=== PATIENT | female | born 1955 | race Caucasian/White ===

== ENCOUNTER 2021-03-13 04:57 | Day surgery (SDC) | payer OTHER ==
[2021-03-11 13:07] VITALS: BMI 30.1
[2021-03-13 11:53] VITALS: BP 143/71; PULSE 52; TEMP 97.9
== END 2021-03-13 11:53 | disposition home or self-care (01) ==
LOC: JASU-ENDO 04:57
PROVIDERS: ATTEND Internal Medicine Gastroenterology
PROC: 0DB68ZX Excision of Stomach, Via Natural or Artificial Opening Endoscopic, Diagnostic (ICD-10-PCS; 2021-03-13)
PROC: 0DB98ZX Excision of Duodenum, Via Natural or Artificial Opening Endoscopic, Diagnostic (ICD-10-PCS; principal; 2021-03-13 11:30)
DX: K29.00 Acute gastritis without bleeding (principal); I10 Essential (primary) hypertension; E11.9 Type 2 diabetes mellitus without complications; Z79.84 Long term (current) use of oral hypoglycemic drugs
CPT/HCPCS: 82962; 88305-TC; 88342-TC

== ENCOUNTER 2022-11-05 00:35 | Observation (INO) | payer OTHER ==
[2022-11-05] MEDS ORDERED: MECLIZINE HCL 25 MG TABLET (FP) PO ONE (02:43)
[2022-11-05] MEDS ORDERED: MECLIZINE HCL 25 MG TABLET (FP) ONE (02:54)
[2022-11-05 03:08] LABS: BASO % 0.7 % (0-2.0); EOS % 1.5 % (0-4.5); HEMATOCRIT 38.6 % (32.4-45.2); HEMOGLOBIN 12.6 GM/dL (10.7-15.3); LYMPH % 35.8 % (8-40); MCH 28.5 pg (25.7-33.7); MCHC 32.6 g/dl (32.0-36.0); MEAN CELL VOLUME 87.4 fl (80-96); MEAN PLT VOLUME 8.8 fl (7.5-11.1); MONO % 6.1 % (3.8-10.2); NEUT % 55.9 % (42.8-82.8); PLATELET COUNT 205 10^3/uL (134-434); RBC 4.41 M/mm3 (3.60-5.2); RDW 13.2 % (11.6-15.6); WHITE BLOOD COUNT 8.7 K/mm3 (4.0-10.0)
[2022-11-05 03:27] LABS: INR 0.96 (0.83-1.09); PROTHROMBIN TIME (PATIENT) 11.1 SEC (9.7-13.0)
[2022-11-05 03:29] LABS: ACTIVATED PTT 31.6 SECONDS (25.2-36.5)
[2022-11-05 03:35] LABS: CALCIUM 9.8 mg/dL (8.5-10.1)
[2022-11-05 03:36] LABS: ALBUMIN 3.8 g/dl (3.4-5.0); BLOOD UREA NITROGEN 20.2 mg/dL (7-18)
[2022-11-05 03:39] LABS: CREATININE 0.9 mg/dL (0.55-1.3)
[2022-11-05 03:40] LABS: BILIRUBIN,TOTAL 0.7 mg/dL (0.2-1); TOT PROT 7.1 g/dl (6.4-8.2)
[2022-11-05] MEDS ORDERED: AZITHROMYCIN IVPB 500 MG/250 ML BAG IVPB SCH (10:00)
[2022-11-05] MEDS ORDERED: ASPIRIN 81 MG CHEWABLE TABLETS ONE (11:25)
[2022-11-05] MEDS: ASPIRIN 325 MG TABLET PO SCH (11:33)
[2022-11-05] MEDS ORDERED: AZITHROMYCIN IVPB 500 MG/250 ML BAG IVPB ONE (13:08)
[2022-11-05] MEDS: AZITHROMYCIN IVPB 500 MG/250 ML BAG IVPB SCH (14:28)
[2022-11-05] MEDS ORDERED: CEFTRIAXONE 1 GM/50 ML BAG ONE (17:02)
[2022-11-05] MEDS: CEFTRIAXONE 1 GM in DEXTROSE 5%-WATER - 50 ML IVPB SCH (17:08)
[2022-11-05] MEDS: INSULIN (NOVOLOG) ASPART 100 UNITS/ML 10ML VIAL SQ SCH (18:47)
[2022-11-05] MEDS ORDERED: ATORVASTATIN CA 80 MG TABLET (FP) PO ONE (22:00)
[2022-11-06 00:28] VITALS: BMI 32.7
[2022-11-06] MEDS ORDERED: ATORVASTATIN CA 80 MG TABLET (FP) PO ONE (00:45)
[2022-11-06] MEDS: INSULIN (NOVOLOG) ASPART 100 UNITS/ML 10ML VIAL SQ SCH ×5 (06:22→22:45)
[2022-11-06 08:24] LABS: POTASSIUM 4.3 mmol/L (3.5-5.1)
[2022-11-06 08:30] LABS: CALCIUM 9.3 mg/dL (8.5-10.1)
[2022-11-06 08:31] LABS: ALBUMIN 3.6 g/dl (3.4-5.0); BLOOD UREA NITROGEN 22.4 mg/dL (7-18); MAGNESIUM 2.2 mg/dL (1.8-2.4)
[2022-11-06 08:33] LABS: CREATININE 0.9 mg/dL (0.55-1.3); PHOSPHOROUS 4.5 mg/dL (2.5-4.9)
[2022-11-06 08:35] LABS: BILIRUBIN,TOTAL 0.9 mg/dL (0.2-1); TOT PROT 6.8 g/dl (6.4-8.2)
[2022-11-06 08:38] LABS: CHOLESTEROL 142 mg/dL (50-200)
[2022-11-06 08:40] LABS: LDL CHOLESTEROL (ONLY SJRH) 86 mg/dL (5-100)
[2022-11-06 08:41] LABS: HDL CHOLESTEROL 37 mg/dL (40-60)
[2022-11-06 08:52] LABS: BASO % 0.2 % (0-2.0); EOS % 1.9 % (0-4.5); HEMATOCRIT 40.1 % (32.4-45.2); HEMOGLOBIN 13.1 GM/dL (10.7-15.3); LYMPH % 38.7 % (8-40); MCH 28.2 pg (25.7-33.7); MCHC 32.6 g/dl (32.0-36.0); MEAN CELL VOLUME 86.7 fl (80-96); MEAN PLT VOLUME 9.6 fl (7.5-11.1); NEUT % 52.2 % (42.8-82.8); PLATELET COUNT 212 10^3/uL (134-434); RBC 4.63 M/mm3 (3.60-5.2); RDW 12.7 % (11.6-15.6); WHITE BLOOD COUNT 7.1 K/mm3 (4.0-10.0)
[2022-11-06] MEDS: NEBIVOLOL 10 MG TABLET (FP) PO SCH (09:46)
[2022-11-06] MEDS: ENOXAPARIN NA (PORCINE) 40 MG/0.4 ML DISP.SYRIN SQ SCH (09:46)
[2022-11-06] MEDS: ASPIRIN 325 MG TABLET PO SCH (09:46)
[2022-11-06] MEDS: AZITHROMYCIN IVPB 500 MG/250 ML BAG IVPB SCH ×2 (09:47→10:50)
[2022-11-06] MEDS: amLODIPine BESYLATE 5 MG TABLET (FP) PO SCH (09:47)
[2022-11-06] MEDS: CEFTRIAXONE 1 GM in DEXTROSE 5%-WATER - 50 ML IVPB SCH ×2 (09:47→10:49)
[2022-11-07] MEDS: INSULIN (NOVOLOG) ASPART 100 UNITS/ML 10ML VIAL SQ SCH ×4 (06:44→22:26)
[2022-11-07] MEDS ORDERED: oxyCODONE HCL 5 MG TABLET PO PRN (09:29)
[2022-11-07] MEDS: amLODIPine BESYLATE 5 MG TABLET (FP) PO SCH (10:16)
[2022-11-07] MEDS: ENOXAPARIN NA (PORCINE) 40 MG/0.4 ML DISP.SYRIN SQ SCH (10:16)
[2022-11-07] MEDS: ASPIRIN 325 MG TABLET PO SCH (10:16)
[2022-11-07] MEDS: NEBIVOLOL 10 MG TABLET (FP) PO SCH (10:16)
[2022-11-07] MEDS ORDERED: INSULIN (NOVOLOG) ASPART 100 UNITS/ML 10ML VIAL ONE (17:25)
[2022-11-07] MEDS ORDERED: ASPIRIN COATED 81 MG TABLET.EC PO SCH (19:11)
[2022-11-08] MEDS: INSULIN (NOVOLOG) ASPART 100 UNITS/ML 10ML VIAL SQ SCH ×2 (06:42→12:00)
[2022-11-08 06:44] VITALS: RESP 20; TEMP 98.3
[2022-11-08 07:49] LABS: BASO % 0.4 % (0-2.0); EOS % 1.7 % (0-4.5); HEMATOCRIT 40.4 % (32.4-45.2); HEMOGLOBIN 13.2 GM/dL (10.7-15.3); LYMPH % 42.9 % (8-40); MCH 28.1 pg (25.7-33.7); MCHC 32.6 g/dl (32.0-36.0); MEAN CELL VOLUME 86.2 fl (80-96); MEAN PLT VOLUME 9.7 fl (7.5-11.1); MONO % 7.4 % (3.8-10.2); NEUT % 47.6 % (42.8-82.8); PLATELET COUNT 204 10^3/uL (134-434); RBC 4.68 M/mm3 (3.60-5.2); WHITE BLOOD COUNT 6.7 K/mm3 (4.0-10.0)
[2022-11-08 07:57] LABS: POTASSIUM 4.3 mmol/L (3.5-5.1)
[2022-11-08 08:00] LABS: CALCIUM 9.3 mg/dL (8.5-10.1)
[2022-11-08 08:01] LABS: ALBUMIN 3.5 g/dl (3.4-5.0); BLOOD UREA NITROGEN 18.4 mg/dL (7-18); MAGNESIUM 2.3 mg/dL (1.8-2.4)
[2022-11-08 08:03] LABS: PHOSPHOROUS 3.9 mg/dL (2.5-4.9)
[2022-11-08 08:04] LABS: CREATININE 0.9 mg/dL (0.55-1.3)
[2022-11-08 08:05] LABS: TOT PROT 6.7 g/dl (6.4-8.2)
[2022-11-08] MEDS ORDERED: REGADENOSON 0.4 MG/5 ML PRE-FILLED SYRINGE IVPUSH ONE ×2 (14:18→14:30)
[2022-11-08] MEDS: amLODIPine BESYLATE 5 MG TABLET (FP) PO SCH (16:24)
[2022-11-08] MEDS: ENOXAPARIN NA (PORCINE) 40 MG/0.4 ML DISP.SYRIN SQ SCH (16:25)
[2022-11-08 16:46] VITALS: BP 126/77; PULSE 62
[2022-11-09] MEDS ORDERED: NEBIVOLOL 5 MG TABLET (FP) PO ONE (11:45)
== END 2022-11-08 18:38 | disposition home or self-care (01) ==
LOC: JER 00:35 → JERBED 05:45 → J4W 23:55
PROVIDERS: ADMIT Internal Medicine; ATTEND Internal Medicine
PROC: 3E023GC Introduction of Other Therapeutic Substance into Muscle, Percutaneous Approach (ICD-10-PCS; principal; 2022-11-05)
PROC: 3E033GC Introduction of Other Therapeutic Substance into Peripheral Vein, Percutaneous Approach (ICD-10-PCS; 2022-11-05)
DX: I44.7 Left bundle-branch block, unspecified (principal); E11.9 Type 2 diabetes mellitus without complications; R94.31 Abnormal electrocardiogram [ECG] [EKG]; R07.89 Other chest pain; I10 Essential (primary) hypertension; R42 Dizziness and giddiness
CPT/HCPCS: 36415; 71045-TC-FY; 78452-TC; 80053; 80061; 82962; 83036; 83735; 84100; 84443; 84484; 85025; 85610; 85730; 86850; 86900; 86901; 93005; 93010; 93017; 93306-TC; 99285-25; A9502; G0378; J2785

== ENCOUNTER 2023-02-03 22:12 | Emergency (ER) | payer OTHER ==
[2023-02-03 22:20] VITALS: BP 160/91; PULSE 85; RESP 16; TEMP 99.1; BMI 32.6
== END 2023-02-04 00:10 | disposition home or self-care (01) ==
LOC: FER 22:12
DX: M25.561 Pain in right knee (principal); R60.0 Localized edema
CPT/HCPCS: 93971-TC; 99284-25